=== PATIENT | female | born 1940 | race Caucasian/White ===

== ENCOUNTER 2016-06-30 07:52 | Outpatient (CLI) | payer MEDICARE, OTHER | END 2016-06-30 07:53 | disposition home or self-care (01) | DX: Z79.899 Other long term (current) drug therapy (principal); E78.5 Hyperlipidemia, unspecified; M81.0 Age-related osteoporosis without current pathological fracture; A60.9 Anogenital herpesviral infection, unspecified; D47.1 Chronic myeloproliferative disease; I73.00 Raynaud's syndrome without gangrene ==

== ENCOUNTER 2016-07-15 14:55 | Outpatient (CLI) | payer MEDICARE, OTHER | END 2016-07-15 14:56 | disposition home or self-care (01) | DX: Z12.31 Encounter for screening mammogram for malignant neoplasm of breast (principal) ==

== ENCOUNTER 2017-07-16 08:53 | Emergency (ER) | payer MEDICARE, OTHER ==
[2017-07-16 09:06] VITALS: BP 115/65
[2017-07-16] MEDS ORDERED: ACETAMINOPHEN 325 MG TABLET PO STA (09:51)
--- NOTE | 2017-07-16 09:54 | ED Physician Documentation ---
History of Present Illness - Stated complaint Stated Complaint: L ANKLE INJURY - Chief complaint Chief Complaint: Ext Problem - Additonal information Additional information: hx from pt 77 f got off couch in slippers and rolled her L ankle immed pain and swelling no fall or other injury Review of Systems Musculoskeletal: reports: Pain with weight bearing PD PAST MEDICAL HISTORY - Past Medical History Cardiovascular: High cholesterol Respiratory: None Neuro: None Endocrine/Autoimmune: None GI: Other : None HEENT: None Psych: None Musculoskeletal: Osteoarthritis Derm: None - Past Surgical History Past Surgical History: Yes General: Appendectomy, Bowel surgery, Colonoscopy 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 HEENT: Cataracts, Tonsil/Adenoidectomy - Present Medications Home Medications: Ambulatory Orders Medication Instructions Recorded Confirmed Alendronate Sodium [Fosamax] 70 mg PO Q7D 07/26/12 06/15/17 Hydroxyurea [Hydrea] 500 mg PO BID 07/26/12 06/15/17 Lovastatin [Mevacor] 20 mg PO HS 07/26/12 06/15/17 Aspirin 81 mg PO DAILY 06/06/15 06/15/17 Cholecalciferol [Vitamin D3] 5,000 unit PO DAILY 08/13/15 06/15/17 Ferrous Sulfate 324 mg PO DAILY 08/13/15 06/15/17 Ascorbic Acid 1,000 mg PO DAILY 01/21/16 06/15/17 [place]-3 Acid Ethyl Esters [Lovaza] 1 gm PO DAILY 01/21/16 06/15/17 Acyclovir 400 mg PO TIDX5D PRN 01/22/16 06/15/17 Gemfibrozil 600 mg PO BIDAC 01/22/16 06/15/17 HYDROcod/ACETAM 5/325 [[place] 5/325] 1 - 2 tab PO Q4HR PRN #40 tablet 01/29/16 - Allergies Allergies/Adverse Reactions: Allergies Allergy/AdvReac Type Severity Reaction Status Date / Time codeine AdvReac Nausea Verified 07/16/17 09:06 - Social History Does the pt smoke?: No Smoking Status: Never smoker Does the pt drink ETOH?: No Does the pt have substance abuse?: No - Immunizations Immunizations are current?: Yes - POLST Patient has POLST: No PD ED PE NORMAL - Vitals Vital signs reviewed: Yes - Cardiac Cardiac: RRR - Respiratory Respiratory: No respiratory distress - Extremities Extremities: Other (L ankle with sig lateral edema and early bruising an TTP over mall and surrounding soft tissue, no laxity, achilles intact, minimal 5th MT TTP, MSV intact) - Neuro Neuro: Alert and oriented X 3 Results - Vitals Vitals: Vital Signs - 24 hr 07/16/17 08:58 Temperature 36.5 C Heart Rate 74 Respiratory 16 Rate Blood Pressure 115/65 O2 Saturation 100 Oxygen O2 Source Room air - Rads (name of study) ankle Radiology: See rad report (non displaced distal fibual fx) PD MEDICAL DECISION MAKING - ED course ED course: pt did not feel she could manage crutches safely so will use a walking boot Departure - Departure Disposition: 01 Home, Self Care Clinical Impression: Closed left ankle fracture Qualifiers: Encounter type: initial encounter Qualified Code(s): S82.892A - Other fracture of left lower leg, initial encounter for closed fracture Condition: Good Instructions: ED Fx Ankle Lateral Malleolus Follow-Up: Rhonda Lau MD [Primary Care Provider] - [facility] [Provider Group] Comments: You have a fracture of the fibula bone Since crutches were not a safe option for you, we have opted to protect the bone with a walking boot. Still try and minimize the walking and weight bearing on that leg When resting may remove the boot for improved circulation and to apply ice for the swelling But always wear the boot for standing or walking. Please follow up with orthopedics for ongoing management Tylenol as needed for the pain
--- NOTE | 2017-07-16 10:06 | XRAY Preliminary Report ---
Exam: XR ANKLE 3 VIEW LT IMPRESSION: Acute fracture of the distal tip of the fibula in near anatomic alignment. [facility] SITE ID: [id number]
--- NOTE | 2017-07-16 10:06 | XRAY Report ---
EXAM: LEFT ANKLE RADIOGRAPHY EXAM DATE: 07/16/2017 09:31 AM. CLINICAL HISTORY: Pain swelling left ankle denies falling. COMPARISON: 07/28/2010. TECHNIQUE: 3 views. FINDINGS: Bones: Oblique, minimally displaced fracture through the lateral malleolus without abnormal angulatio n. No other acute fracture. Bones appear demineralized. Joints: No effusion or subluxation. Soft Tissues: Significant lateral and mild anterior soft tissue swelling. Vascular calcifications. IMPRESSION: Acute fracture of the distal tip of the fibula in near anatomic alignment. [facility] Referring Provider Line: [phone] SITE ID: [id number]
== END 2017-07-16 10:52 | disposition home or self-care (01) ==
LOC: ED 08:53
DX: S82.62XA Displaced fracture of lateral malleolus of left fibula, initial encounter for closed fracture (principal); X50.1XXA Overexertion from prolonged static or awkward postures, initial encounter; Y93.89 Activity, other specified; Z79.891 Long term (current) use of opiate analgesic; Z79.82 Long term (current) use of aspirin
CPT/HCPCS: 73610; 99283; A9270

== ENCOUNTER 2017-08-05 13:24 | Outpatient (CLI) | payer MEDICARE, OTHER ==
[2017-08-05 17:45] LABS: BILIRUBIN,URINE NEGATIVE (NEGATIVE); GLUCOSE, URINE (UA) NEGATIVE (NEGATIVE); KETONES,URINE (UA) NEGATIVE (NEGATIVE); LEUKOCYTE ESTERASE, URINE NEGATIVE (NEGATIVE); NITRITE,URINE NEGATIVE (NEGATIVE); OCCULT BLOOD,URINE NEGATIVE (NEGATIVE); PROTEIN,URINE TRACE mg/dL (NEGATIVE); UROBILINOGEN,URINE 0.2 (NORMAL) E.U./dL (NORMAL)
[2017-08-05 17:48] LABS: CLARITY,URINE HAZY (CLEAR)
[2017-08-05 18:06] LABS: BACTERIA,URINE Few /HPF (None Seen); RBC,URINE None Seen /HPF (0-5); SQUAMOUS EPITHELIAL CELL,UR NONE SEEN (<= Few)
[2017-08-05 18:07] LABS: AMORPHOUS SEDIMENT,UR Moderate /LPF; CRYSTALS,URINE 3-5 Calcium Oxalate /LPF
== END 2017-08-05 13:25 | disposition home or self-care (01) ==
LOC: LAB.F 13:24
PROVIDERS: ATTEND Internal Medicine
DX: R35.0 Frequency of micturition (principal); R39.89 Other symptoms and signs involving the genitourinary system
CPT/HCPCS: 81001; 81003; 87086

== ENCOUNTER 2017-08-16 10:58 | Outpatient (CLI) | payer MEDICARE, OTHER ==
--- NOTE | 2017-08-20 10:21 | Mammography Report ---
SCREENING MAMMOGRAM: 08/16/2017 COMPARISON: 07/15/2016, 11/27/2014, 01/19/2013, 10/08/2011, 08/05/2010, and 07/30/2009. TECHNIQUE: Bilateral digital CC, exaggerated CC and MLO projections. FINDINGS: There are scattered fibroglandular densities. There is no dominant mass, architectural distortion, skin thickening, suspicious microcalcifications or interval change. IMPRESSION: NEGATIVE. BIRADS category: 1, negative. Suggest return to routine screening in 12 months. STANDARD QUALIFYING STATEMENTS 1. This examination was reviewed with the aid of Computed-Aided Detection (CAD). 2. A negative or benign imaging report should not delay biopsy if clinically suspicious findings are present. Consider surgical consultation if warranted. More than 5% of cancers are not identified by imaging. 3. Dense breasts may obscure an underlying neoplasm. TD: 08/17/2017 18:19
== END 2017-08-16 10:59 | disposition home or self-care (01) ==
LOC: DI.S 10:58
PROVIDERS: ATTEND Internal Medicine
DX: Z12.31 Encounter for screening mammogram for malignant neoplasm of breast (principal)
CPT/HCPCS: 77067

== ENCOUNTER 2017-09-28 19:57 | Outpatient (CLI) | payer MEDICARE, OTHER ==
--- NOTE | 2017-09-28 22:24 | Ultrasound Report ---
Procedure Date: 09/28/2017 Accession Number: [id number] / [id number] Procedure: US - Duplex Ext Veins Left CPT Code: FULL RESULT: EXAM: LEFT LOWER EXTREMITY VENOUS ULTRASOUND EXAM DATE: 09/28/2017 09:40 PM. CLINICAL HISTORY: LEFT LOWER EXT EDEMA. COMPARISON: None. TECHNIQUE: Real-time sonographic vascular imaging was performed by the hoop rolls operator through the lower extremity utilizing both color-flow and Doppler spectral analysis. Multiple enrollment representative static images were saved for review. FINDINGS: Common Femoral Vein (CFV): Normal. CFV-GSV Junction: Normal. Profunda Femoral Vein (PFV): Normal. Femoral Vein (FV) Prox: Normal. Femoral Vein (FV) Mid: Normal. Femoral Vein (FV) Dist: Normal. Popliteal Vein: Normal. Posterior Tibial Veins: Normal. Peroneal Veins: Suboptimal visualization due to edema. Contralateral Side CFV: Normal. Other: None. IMPRESSION: No evidence for deep venous thrombosis. [facility]
== END 2017-09-28 19:58 | disposition home or self-care (01) ==
LOC: DI 19:57
PROVIDERS: ATTEND Internal Medicine
DX: R60.0 Localized edema (principal); R39.15 Urgency of urination
CPT/HCPCS: 81001; 81003; 87086

== ENCOUNTER 2017-09-28 20:05 | Outpatient (CLI) | payer MEDICARE, OTHER ==
[2017-09-28 20:31] LABS: BILIRUBIN,URINE NEGATIVE (NEGATIVE); GLUCOSE, URINE (UA) NEGATIVE (NEGATIVE); KETONES,URINE (UA) NEGATIVE (NEGATIVE); LEUKOCYTE ESTERASE, URINE SMALL (NEGATIVE); NITRITE,URINE POSITIVE (NEGATIVE); OCCULT BLOOD,URINE TRACE-INTA (NEGATIVE); PROTEIN,URINE TRACE mg/dL (NEGATIVE); UROBILINOGEN,URINE 0.2 (NORMAL) E.U./dL (NORMAL)
[2017-09-28 20:38] LABS: CLARITY,URINE CLOUDY (CLEAR)
[2017-09-28 20:41] LABS: BACTERIA,URINE Moderate /HPF (None Seen); RBC,URINE 0-5 /HPF (0-5); SQUAMOUS EPITHELIAL CELL,UR NONE SEEN (<= Few)
== END 2017-09-28 20:06 | disposition home or self-care (01) ==
LOC: LAB 20:05
PROVIDERS: ATTEND Internal Medicine
DX: R39.15 Urgency of urination (principal)
CPT/HCPCS: 81001; 81003; 87086

== ENCOUNTER 2020-12-25 20:48 | Observation (INO) | payer MEDICARE, OTHER ==
[2020-12-25] MEDS ORDERED: IOVERSOL 320 100 ML VIAL IVP ONE ×2 (21:58→23:56)
[2020-12-25 22:20] LABS: BASOPHILS # (AUTO) 0.4 10^3/uL (0.0-0.1); EOSINOPHILS # (AUTO) 0.6 10^3/uL (0.0-0.7); EOSINOPHILS % (AUTO) 2.9 %; HCT - HEMATOCRIT 39.6 % (37.0-47.0); HGB - HEMOGLOBIN 12.8 g/dL (12.0-16.0); LYMPHOCYTES # (AUTO) 1.9 10^3/uL (1.5-3.5); MEAN CORPUSCULAR HEMOGLOBIN 31.1 pg (27.0-31.0); MEAN CORPUSCULAR HGB CONC 32.3 g/dL (32.0-36.0); MEAN CORPUSCULAR VOLUME 96.4 fL (81.0-99.0); MEAN PLATELET VOLUME 9.8 fL (7.9-10.8); MONOCYTES # (AUTO) 1.2 10^3/uL (0.0-1.0); MONOCYTES % (AUTO) 6.6 %; NEUTROPHILS # (AUTO) 14.6 10^3/uL (1.5-6.6); NEUTROPHILS % (AUTO) 77.6 %; RED BLOOD COUNT 4.11 10^6/uL (4.20-5.40); RED CELL DISTRIBUTION WIDTH 15.3 % (12.0-15.0); WHITE BLOOD COUNT 18.8 x10^3/uL (4.8-10.8)
[2020-12-25 22:26] LABS: PLT - PLATELET COUNT 1055 10^3/uL (130-450)
[2020-12-25 22:30] LABS: ALBUMIN 4.9 g/dL (3.2-5.5); CALCIUM 9.8 mg/dL (8.5-10.3); CREATININE 0.7 mg/dL (0.4-1.0); POTASSIUM 4.7 mmol/L (3.5-5.0)
[2020-12-25 23:20] LABS: ALBUMIN/GLOBULIN RATIO 2.5 (1.0-2.2); BILIRUBIN,TOTAL 0.3 mg/dL (0.2-1.0); TOTAL PROTEIN 6.9 g/dL (6.7-8.2)
--- NOTE | 2020-12-26 00:10 | CT Report ---
PROCEDURE: ANGIO HEAD W/WO INDICATIONS: dysarthria @1854, hx thrombocytosis CONTRAST: IV CONTRAST: Optiray 320 ml: 80 PO CONTRAST: *NO PO CONTRAST TECHNIQUE: Precontrast 4.5 mm thick angled axial sections acquired from the foramen magnum to the vertex. Afte r the administration of intravenous contrast, 1 mm thick sections acquired through the [place] is. Postcontrast 4.5 mm thick sections then re-acquired from the foramen magnum to the vertex. 3-di mensional zzlswyu-cqtrjwzwn-dzrmnezhzv (MIP) and/or volume rendering reformats were acquired of the c entral intracranial vasculature. For radiation dose reduction, the following was used: automated ex posure control, adjustment of mA and/or kV according to patient size. COMPARISON: None. FINDINGS: Image quality: Excellent. Anterior circulation: Mild atherosclerotic calcifications are seen in the intracranial portions of t he internal carotid arteries bilaterally without hemodynamically significant stenosis. The flow withi n the paired anterior cerebral arteries is normal and symmetric. The flow within the middle cerebral arteries is normal and symmetric. The anterior communicating artery is seen. No aneurysms are seen . Posterior circulation: Mild atherosclerotic calcifications are seen in the intracranial portions of the vertebral arteries bilaterally, which does not result in significant stenosis on the left and res ults in less than 30% stenosis of the intracranial right vertebral artery. The basilar artery is hyde nt. There is a type origin of the left posterior cerebral artery with a hypoplastic P1 segment, and anatomical variant. Flow within the posterior cerebral arteries is otherwise normal and symmetri c. No aneurysms are seen. CSF spaces: Ventricles are symmetric in size and shape. Basal cisterns are patent. No extra-axial fluid collections. Brain: No midline shift. No acute intracranial hemorrhage or mass effect. There is prominence of the ventricles and sulci, consistent with cerebral and cerebellar volume loss. Hypodensities in the subc ortical and periventricular white matter most commonly seen in the setting of chronic microvascular i schemic changes. Intracranial atherosclerotic calcifications are present. Skull and face: Calvarium and facial bones appear intact, without suspicious lesions. Sinuses: Visualized sinuses and mastoids are clear. IMPRESSION: 1.No acute intracranial abnormality. 2.Mild intracranial atherosclerotic calcifications without hemodynamically significant stenosis. No a cute intracranial arterial occlusion. 3.Moderate microvascular ischemic changes and age-related diffuse cerebral volume loss. Reviewed by: Cristian Vázquez MD on 12/26/2020 12:09 AM PDT Approved by: Cristian Vázquez MD on 12/26/2020 12:09 AM PDT Station ID: [id number]
[2020-12-26] MEDS ORDERED: MORPHINE 2 MG/ML CARPUJECT IVP STA (00:18)
[2020-12-26 00:25] LABS: BILIRUBIN,URINE NEGATIVE (NEGATIVE); GLUCOSE, URINE (UA) NEGATIVE (NEGATIVE); KETONES,URINE (UA) NEGATIVE (NEGATIVE); LEUKOCYTE ESTERASE, URINE NEGATIVE (NEGATIVE); NITRITE,URINE NEGATIVE (NEGATIVE); OCCULT BLOOD,URINE NEGATIVE (NEGATIVE); PH,URINE 6.5 PH (5.0-7.5); PROTEIN,URINE NEGATIVE (NEGATIVE); UROBILINOGEN,URINE 0.2 (NORMAL) E.U./dL (NORMAL)
--- NOTE | 2020-12-26 00:25 | CT Report ---
PROCEDURE: ANGIO NECK W INDICATIONS: dysarthria @1854 now resolved. hx thrombocytosis CONTRAST: IV CONTRAST: Optiray 320 ml: 80 PO CONTRAST: *NO PO CONTRAST TECHNIQUE: After the administration of intravenous contrast, 1.5 mm axial sections acquired from the aortic arch to the [place]. Coronal 3-D maximum intensity projection (MIP) and/or volume rendering ref ormats were then performed. For radiation dose reduction, the following was used: automated exposur e control, adjustment of mA and/or kV according to patient size. COMPARISON: None. FINDINGS: Image quality: Excellent. Carotid system: The great vessels demonstrate a conventional anatomy as they arise from the aortic a rch. Mild aortic atherosclerotic calcifications. The origins of the common carotid arteries appear p atent. The common carotid arteries demonstrate normal calibers and courses. Densely calcified and no ncalcified atherosclerotic plaque is seen in the carotid bifurcations bilaterally. On the right, this results in mild to approximately 30% stenosis of the proximal internal carotid artery. On the left, the noncalcified plaque appears mildly irregular and results in approximately 55% stenosis of the pro ximal internal carotid artery. Intracranial vascular calcifications are seen in the internal carotid arteries bilaterally without hemodynamically significant stenosis. Posterior circulation: The origins of the vertebral arteries appear patent. The more superior instr ument portions of the vertebral arteries demonstrate normal course and caliber. Vascular calcificatio ns are seen in the intracranial portions of the vertebral arteries, resulting in less than 50% stenos is of the right vertebral artery without significant left vertebral artery stenosis. They join to for m a normal appearing basilar artery. Soft tissues: Visualized neck soft tissues demonstrate no suspicious abnormalities. A few small hyp odense nodules are seen in the thyroid, the largest measures up to 7 mm in the left thyroid lobe. No imaging follow-up is recommended based on ACR white paper guidelines. Bones: No suspicious bony lesions. Visualized cervical spine appears normally aligned. Multilevel degenerative changes are seen in the cervical spine. IMPRESSION: 1.Mildly irregular calcified and noncalcified atherosclerotic plaque at the left carotid bifurcation results in 50-60% stenosis of the proximal left internal carotid artery. 2.Calcified atherosclerotic plaque at the right carotid bifurcation results in mild, approximately 30 % stenosis. 3.Calcified atherosclerotic plaque at the intracranial right vertebral artery results in less than 50 % stenosis. 4.No acute arterial occlusion. The estimate of stenosis included in the report of the imaging study was calculated using the NASCET method Reviewed by: Cristian Vázquez MD on 12/26/2020 12:24 AM PDT Approved by: Cristian Vázquez MD on 12/26/2020 12:24 AM PDT Station ID: [id number]
[2020-12-26 00:26] LABS: CLARITY,URINE CLEAR (CLEAR)
[2020-12-26] MEDS ORDERED: ASPIRIN 325 MG TABLET PO STA (01:07)
[2020-12-26] MEDS ORDERED: SODIUM CHLORIDE FLUSH 0.9% 10 ML SYRINGE IVP PRN (01:10)
[2020-12-26] MEDS ORDERED: ONDANSETRON ODT 4 MG TABLET TL PRN (01:10)
[2020-12-26] MEDS ORDERED: ACETAMINOPHEN 325 MG TABLET PO PRN (01:10)
--- NOTE | 2020-12-26 01:11 | ED Physician Documentation ---
History of Present Illness - Stated complaint Stated Complaint: SLURRED SPEACH,SORE FEET - Chief complaint Chief Complaint: Ext Problem - Additonal information Additional information: 80yF with pmh myeloproliferative disorder with thrombocytosis, hld, OA, p/w brief episode of slurred speech around 1954 this past evening. patient called her friend and the friend noted slurred speech and called 911. patient reports it only lasted a couple minutes and had resolved upon ems arrival. no history drug or alcohol use. AOX3 on arrival. patient appears unsure of her medications or whether she takes medications. 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 HEENT: Cataracts, Tonsil/Adenoidectomy - Present Medications Home Medications: Ambulatory Orders Medication Instructions Recorded Confirmed Alendronate Sodium [Fosamax] 70 mg PO Q7D 07/26/12 09/26/19 Hydroxyurea [Hydrea] 500 mg PO BID 07/26/12 09/26/19 Lovastatin [Mevacor] 20 mg PO HS 07/26/12 09/26/19 Aspirin 81 mg PO DAILY 06/06/15 09/26/19 Cholecalciferol [Vitamin D3] 5,000 unit PO DAILY 08/13/15 09/26/19 Ferrous Sulfate 324 mg PO DAILY 08/13/15 09/26/19 Ascorbic Acid 1,000 mg PO DAILY 01/21/16 09/26/19 [place]-3 Acid Ethyl Esters [Lovaza] 1 gm PO DAILY 01/21/16 09/26/19 Acyclovir 400 mg PO TIDX5D PRN 01/22/16 09/26/19 gemfibroziL [Gemfibrozil] 600 mg PO BIDAC 01/22/16 09/26/19 HYDROcod/ACETAM 5/325 [[place] 5/325] 1 - 2 tab PO Q4HR PRN #40 tablet 01/29/16 09/26/19 oxyCODONE [Roxicodone] 5 mg PO Q4-6H #10 tablet 07/16/17 09/26/19 Hydroxyurea 500 mg PO DAILY 09/20/18 09/26/19 - Allergies Allergies/Adverse Reactions: Allergies Allergy/AdvReac Type Severity Reaction Status Date / Time codeine AdvReac Nausea Verified 12/25/20 21:24 - Social History Does the pt smoke?: No Smoking Status: Never smoker Does the pt drink ETOH?: No Does the pt have substance abuse?: No - Immunizations Immunizations are current?: Yes - POLST Patient has POLST: No PD ED PE NORMAL - Vitals Vital signs reviewed: Yes - General General: Alert and oriented X 3, No acute distress, Well developed/nourished - HEENT HEENT: Atraumatic, PERRL, EOMI - Neck Neck: Supple, no meningeal sign - Cardiac Cardiac: RRR - Respiratory Respiratory: No respiratory distress, Clear bilaterally - Abdomen Abdomen: Non tender, Non distended - Female Female : Deferred - Rectal Rectal: Deferred - Back Back: No CVA TTP - Derm Derm: Normal color - Extremities Extremities: No deformity - Neuro Neuro: Alert and oriented X 3, 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, No motor deficit, No sensory deficit, Normal speech, Other (NIHSS 0) - Psych Psych: Normal mood, Normal affect Results - Vitals Vitals: Vital Signs - 24 hr 12/25/20 12/25/20 12/25/20 21:00 21:28 22:18 Temperature 36.6 C Heart Rate 91 89 94 Respiratory 18 16 18 Rate Blood Pressure 128/66 148/64 H 126/63 O2 Saturation 100 98 100 12/25/20 12/26/20 12/26/20 22:38 00:00 00:20 Temperature 36.7 C Heart Rate 93 93 98 Respiratory 21 17 18 Rate Blood Pressure 153/82 H 137/73 H 137/73 H O2 Saturation 100 99 99 12/26/20 01:07 Temperature Heart Rate 96 Respiratory 17 Rate Blood Pressure 133/88 H O2 Saturation 97 Oxygen O2 Source Room air - Labs Labs: Laboratory Tests 12/25/20 12/25/20 12/25/20 21:18 22:10 22:10 WBC 18.8 H RBC 4.11 L Hgb 12.8 Hct 39.6 MCV 96.4 MCH 31.1 H MCHC 32.3 RDW 15.3 H Plt Count 1055 H* MPV 9.8 Neut # (Auto) 14.6 H Lymph # (Auto) 1.9 [place] # (Auto) 1.2 H Eos # (Auto) 0.6 Baso # (Auto) 0.4 H Absolute Nucleated RBC 0.00 Nucleated RBC % 0.0 Sodium 139 Potassium 4.7 Chloride 104 Carbon Dioxide 25 Anion Gap 10.0 BUN 21 H Creatinine 0.7 Estimated GFR (MDRD) 81 L Glucose 107 H POC Whole Bld Glucose 97 Calcium 9.8 Total Bilirubin 0.3 AST 23 ALT 21 Alkaline Phosphatase 78 Total Protein 6.9 Albumin 4.9 Globulin 2.0 L Albumin/Globulin Ratio 2.5 H Lipase 34 Urine Color Urine Clarity Urine pH Ur Specific [place] Urine Protein Urine Glucose (UA) Urine Ketones Urine Occult Blood Urine Nitrite Urine Bilirubin Urine Urobilinogen Ur Leukocyte Esterase Ur Microscopic Review Urine Culture Comments 12/26/20 00:17 WBC RBC Hgb Hct MCV MCH MCHC RDW Plt Count MPV Neut # (Auto) Lymph # (Auto) [place] # (Auto) Eos # (Auto) Baso # (Auto) Absolute Nucleated RBC Nucleated RBC % Sodium Potassium Chloride Carbon Dioxide Anion Gap BUN Creatinine Estimated GFR (MDRD) Glucose POC Whole Bld Glucose Calcium Total Bilirubin AST ALT Alkaline Phosphatase Total Protein Albumin Globulin Albumin/Globulin Ratio Lipase Urine Color YELLOW Urine Clarity CLEAR Urine pH 6.5 Ur Specific [place] 1.015 Urine Protein NEGATIVE Urine Glucose (UA) NEGATIVE Urine Ketones NEGATIVE Urine Occult Blood NEGATIVE Urine Nitrite NEGATIVE Urine Bilirubin NEGATIVE Urine Urobilinogen 0.2 (NORMAL) Ur Leukocyte Esterase NEGATIVE Ur Microscopic Review NOT INDICATED Urine Culture Comments NOT INDICATED PD MEDICAL DECISION MAKING - ED course ED course: 80yF presents with transient neurologic symptoms concerning for possible TIA. mild to moderate stenosis on CTA neck. CT and CTA head noncontributory. d/w Dr. Rodriguez for observation for TIA workup. Departure - Departure Disposition: ED Place in Observation Clinical Impression: TIA (transient ischemic attack), Slurring of speech Condition: Stable Discharge Date/Time: 12/26/20 01:42
--- NOTE | 2020-12-26 01:16 | HISTORY & PHYSICAL EXAMINATION ---
Chief Complaint - Chief Complaint Chief Complaint: Slurred speech History of Present Illness - Admitted From Admitted From:: Home - History Obtained From Records Reviewed: Yes History obtained from: Patient, ER Physician, EMR - History of Present Illness HPI Comment/Other: This is a 80-year-old female with a past medical history significant for a my eloproliferative disorder with thrombocytosis, iron deficiency anemia who presents yesterday evening complaining of slurred speech. She states she is on the phone talking to her friend when she noticed that her speech was quite slurred and her friend did as well. She states this only lasted for a few minutes before resolving. She is not believe that she had any other deficits. She currently feels that her speech is back to baseline and she currently has no weakness in her upper or lower extremities. Her only complaint at this time is bilateral feet pain over the plantar surface which she states has been present for nearly a week now. She denies any fevers, chills, chest pain, dyspnea. She does take hydroxyurea for the myeloproliferative disorder. Prior records reveal that she was prescribed aspirin but she does not believe that she is taking any aspirin on a regular basis. She denies any evidence of bleeding but does report that she tends to bleed easily. In the emergency department, she underwent a CTA of the head and neck an approximate 50-60% stenosis of the proximal left internal carotid artery but no evidence of acute occlusion. There was no significant stenosis evident on CTA head. Labs revealed a white count of 18.8 and a platelet count of 1055. She was given aspirin in the emergency department. Given the above findings, medicine was consulted for admission. I did discuss goals of care with the patient and she would like to be a full code. 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 She reports no other significant family history. Living arrangement: At home Living Situation: Alone Social History Notes: She states she lives at home alone. She is a non-smoker and does not drink alcohol. - POLST Patient has POLST: No Meds/Allgy - Home Medications Home Medications: Ambulatory Orders Medication Instructions Recorded Confirmed Alendronate Sodium [Fosamax] 70 mg PO Q7D 07/26/12 09/26/19 Hydroxyurea [Hydrea] 500 mg PO BID 07/26/12 09/26/19 Lovastatin [Mevacor] 20 mg PO HS 07/26/12 09/26/19 Aspirin 81 mg PO DAILY 06/06/15 09/26/19 Cholecalciferol [Vitamin D3] 5,000 unit PO DAILY 08/13/15 09/26/19 Ferrous Sulfate 324 mg PO DAILY 08/13/15 09/26/19 Ascorbic Acid 1,000 mg PO DAILY 01/21/16 09/26/19 [place]-3 Acid Ethyl Esters [Lovaza] 1 gm PO DAILY 01/21/16 09/26/19 Acyclovir 400 mg PO [id number] PRN 01/22/16 09/26/19 gemfibroziL [Gemfibrozil] 600 mg PO BIDAC 01/22/16 09/26/19 HYDROcod/ACETAM 5/325 [[place] 5/325] 1 - 2 tab PO Q4HR PRN #40 tablet 01/29/16 09/26/19 oxyCODONE [Roxicodone] 5 mg PO Q4-6H #10 tablet 07/16/17 09/26/19 Hydroxyurea 500 mg PO DAILY 09/20/18 09/26/19 - Allergies Allergies/Adverse Reactions: Allergies Allergy/AdvReac Type Severity Reaction Status Date / Time codeine AdvReac Nausea Verified 12/25/20 21:24 Review of Systems - Constitutional Constitutional: denies: Fatigue, Fever, Chills - Ears, Nose & Throat Ears, Nose & Throat: denies: Nasal discharge, Nasal congestion - Cardiovascular Cariovascular: denies: Chest pain, Edema, Exertional dyspnea, Decr. exercise tolerance - Respiratory Respiratory: denies: Cough, SOB at rest, SOB with exertion - Gastrointestinal Gastrointestinal: reports: Nausea. denies: Abdominal pain, Rectal bleeding, Bloody stools, Vomiting - Genitourinary Genitourinary: denies: Dysuria, Frequency, Urgency, Hematuria - Musculoskeletal Musculoskeletal: denies: Muscle pain, Muscle weakness - Integumentary Integumentary: denies: Rash - Neurological Neurological: reports: Slurred speech. denies: General weakness, Focal weakness, Numbness - Hematologic/Lymphatic Hematologic/Lymphatic: reports: Anemia, Bruising, Bleeding tendencies - All Other Systems All Other Systems: reports: Reviewed and negative Prior Level of Functionality: She is independent with her ADLs. Exam - Vital Signs Reviewed Vital Signs: Yes Vital Signs: Vital Signs x48h Temp Pulse Resp BP Pulse Ox 12/26/20 01:07 96 17 133/88 H 97 12/26/20 00:20 98 18 137/73 H 99 12/26/20 00:00 36.7 C 93 17 137/73 H 99 12/25/20 22:38 93 21 153/82 H 100 12/25/20 22:18 94 18 126/63 100 12/25/20 21:28 89 16 148/64 H 98 12/25/20 21:00 36.6 C 91 18 128/66 100 - Physical Exam General Appearance: positive: No acute distress, Alert Eyes Bilateral: positive: Conjunctivae nml ENT: positive: ENT inspection nml Neck: positive: Nml inspection Respiratory: positive: No respiratory distress. negative: Wheezes, Rales Cardiovascular: positive: Regular rate & rhythm, No murmur. negative: Tachycardia Peripheral Pulses: positive: 2+ (Dorsalis pedis pulses.) Abdomen: positive: Non-tender, No distention. negative: Tenderness Skin: positive: Warm, Dry Extremities: positive: No pedal edema Neurologic/Psychiatric: positive: CN's nml (2-12), Motor nml, Sensation nml. negative: Disoriented to person, Disoriented to place, Disoriented to time, S ensory loss, Facial droop, Slurred/abnml speech Conclusion/Plan - Problem List (1) TIA (transient ischemic attack) Conclusion/Plan: She presents with slurred speech but no focal deficits. Imaging revealed a 50 to 60% stenosis of the left proximal internal carotid artery. She will be placed in observation and continued on aspirin and Plavix. We will start her on Lipitor 40 mg in the evening. We will check an A1c and lipid panel. Obtain MRI as well as echocardiogram. Monitor on telemetry. Will ultimately likely discuss with hematology/neurology regarding long-term antiplatelet given her myeloproliferative disorder with thrombocytosis. (2) Myeloproliferative disorder Conclusion/Plan: She is a known history of myeloproliferative disorder with thrombocytosis. She is on hydroxyurea. It appears she has not seen hematology since November 2019 and the patient is unable to tell me why. She will most definitely need outpatient follow-up on discharge given her persistently elevated platelet count and now potential concern for TIA. (3) Thrombocytosis Conclusion/Plan: This is secondary to a myeloproliferative disorder. Platelet count is over 1000. She is supposed to be on aspirin but she does not believe that she is steven ing this. We will continue her 81 mg of aspirin and add Plavix given the TIA. - Lab Results Lab results reviewed: Yes Nehemiah Bones: 12/26/20 02:08 12/26/20 02:08 - Diagnostic Imaging Results Diagnostic Imaging Results: positive: Final report reviewed Core Measures - Anticipated LOS I expect patient to be DC'd or transferred within 96 hours.: Yes - Issues Hospital Issues and Management Plan: 80-year-old female with a history of mild peripheral disorder with thrombocytosis presents with slurred speech that has resolved. Concern is for TIA and so we will place her in observation for further work-up including MRI and echo. - DVT/VTE - Prophylaxis VTE/DVT Device ordered at admit?: Yes VTE/DVT Prophylaxis med ordered at admit?: Yes
[2020-12-26 02:10] LABS: B. PARAPERTUSSIS- RESP PCR PAN NOT DETECTED; B. PERTUSSIS- RESP PCR PANEL NOT DETECTED; C. PNEUMONIAE- RESP PCR PANEL NOT DETECTED; CORONAVIRUS 229E-RESP PCR NOT DETECTED; CORONAVIRUS HKU1-RESP PCR NOT DETECTED; CORONAVIRUS NL63-RESP PCR NOT DETECTED; CORONAVIRUS OC43-RESP PCR NOT DETECTED; HUMAN METAPNEUMOVIRUS NOT DETECTED; INFLUENZA A- RESP PCR PANEL NOT DETECTED; INFLUENZA B - RESP PCR PANEL NOT DETECTED; PARAINFLUENZA VIRUS 1 NOT DETECTED; PARAINFLUENZA VIRUS 2 NOT DETECTED; PARAINFLUENZA VIRUS 3 NOT DETECTED; PARAINFLUENZA VIRUS 4 NOT DETECTED; RHINOVIRUS/ENTEROVIRUS NOT DETECTED; RSV- RESP PCR PANEL NOT DETECTED; SARS-CoV-2 -RESP PCR PANEL NOT DETECTED
[2020-12-26 02:11] LABS: M. PNEUMONIAE- RESP PCR PANEL NOT DETECTED
[2020-12-26 02:17] LABS: BASOPHILS # (AUTO) 0.4 10^3/uL (0.0-0.1); EOSINOPHILS # (AUTO) 0.6 10^3/uL (0.0-0.7); HCT - HEMATOCRIT 41.5 % (37.0-47.0); LYMPHOCYTES # (AUTO) 1.9 10^3/uL (1.5-3.5); LYMPHOCYTES % (AUTO) 10.1 %; MEAN CORPUSCULAR HEMOGLOBIN 30.3 pg (27.0-31.0); MEAN CORPUSCULAR HGB CONC 31.3 g/dL (32.0-36.0); MEAN CORPUSCULAR VOLUME 96.7 fL (81.0-99.0); MEAN PLATELET VOLUME 9.8 fL (7.9-10.8); MONOCYTES # (AUTO) 1.1 10^3/uL (0.0-1.0); MONOCYTES % (AUTO) 6.1 %; NEUTROPHILS # (AUTO) 14.7 10^3/uL (1.5-6.6); NEUTROPHILS % (AUTO) 78.2 %; RED BLOOD COUNT 4.29 10^6/uL (4.20-5.40); RED CELL DISTRIBUTION WIDTH 15.1 % (12.0-15.0); WHITE BLOOD COUNT 18.8 x10^3/uL (4.8-10.8)
[2020-12-26 02:23] LABS: PLT - PLATELET COUNT 949 10^3/uL (130-450)
[2020-12-26 02:40] LABS: BUN - BLOOD UREA NITROGEN 16 mg/dL (6-20); CALCIUM 9.2 mg/dL (8.5-10.3); CARBON DIOXIDE - CO2 24 mmol/L (21-32); CHLORIDE 101 mmol/L (101-111); CHOL/HDL RATIO 6.5 (<4.4); CHOLESTEROL 209 mg/dL; CREATININE 0.7 mg/dL (0.4-1.0); GFR - MDRD 81 (>89); GLUCOSE 91 mg/dL (70-100); HDL CHOLESTEROL 32 mg/dL; LDL CHOLESTEROL,CALCULATED 135 mg/dL; LDL/HDL RATIO 4.2 (<4.4); POTASSIUM 3.9 mmol/L (3.5-5.0); SODIUM 136 mmol/L (135-145); TRIGLYCERIDES 210 mg/dL; VLDL CHOLESTEROL 42 mg/dL
[2020-12-26] MEDS ORDERED: ASPIRIN CHEW 81 MG TABLET PO SCH (09:00)
[2020-12-26] MEDS ORDERED: ENOXAPARIN 40 MG/0.4 ML SYRINGE SUBQ SCH (09:00)
[2020-12-26] MEDS ORDERED: SODIUM CHLORIDE FLUSH 0.9% 10 ML SYRINGE IVP SCH (09:00)
[2020-12-26] MEDS ORDERED: CLOPIDOGREL 75 MG TABLET PO SCH (09:00)
[2020-12-26 10:32] LABS: ESTIMATED AVERAGE GLUCOSE 114 mg/dL (70-100); HEMOGLOBIN A1c% 5.6 % (4.27-6.07)
--- NOTE | 2020-12-26 11:16 | PHARMACY PROGRESS NOTE ---
- Best Possible Medication History Admit Date and Time: 12/26/20 0110 Processed by: Pharmacy Medication History completed: Yes Patient Interview: Completed Secondary Source(s): Insurance records (Patient reports she only takes 1 pill a day, was not sure what. Olga Choi in [place] (patient's pharmacy) reports she has not filled anything since 07/15/20. Re-interviewed patient, she says she takes hydroxyurea everyday ) As the person ultimately responsible for medication therapy, providers are able to order a medication from an existing home medication list in [facility] via the "Reconcile Routine" prior to Confirmation of that medication by supportability engineer. Such practice is discouraged except when the physician, in their clinical judgment, deems that a medical need exists for a medication without regard to previous use.
--- NOTE | 2020-12-26 13:29 | MRI Report ---
PROCEDURE: Brain W/O INDICATIONS: Neuro deficit resolved. TECHNIQUE: Noncontrast axial T1 spin echo, axial T2 fast spin echo, sagittal and axial FLAIR, coronal T2 fast sp in echo, axial gradient echo, axial diffusion and ADC through the brain. COMPARISON: CTA head and neck 12/25/2020. FINDINGS: Image quality: Excellent. The ventricular system and cortical sulci demonstrate atrophy, consistent for patient's stated age. There are areas of hyperintense T2/FLAIR signal in the periventricular and subcortical white matter. There is no acute intra or extra-axial fluid collection. No acute hemorrhage, mass lesion or midlin e shift. Brainstem is unremarkable. There are no areas of restricted diffusion. Globes are symmetr ical. Sinuses are aerated. Osseous structures are intact. IMPRESSION: 1. No acute intracranial process. 2. Moderate atrophy and chronic microvascular ischemic changes. Reviewed by: Tayler Patel MD on 12/26/2020 1:27 PM PDT Approved by: Tayler Patel MD on 12/26/2020 1:27 PM PDT Station ID: [id number]
[2020-12-26] MEDS ORDERED: HYDROXYUREA 500 MG CAPSULE PO SCH (14:00)
--- NOTE | 2020-12-26 14:20 | Discharge Plan ---
Discharge Plan Problem Reviewed?: Yes Disposition: Home, Self Care Condition: Stable Prescriptions: Atorvastatin [Lipitor] 40 mg PO QPM #30 tablet Aspirin Chewable [[place] Aspirin] 81 mg PO DAILY #30 tablet Diet: Regular Activity Restrictions: Activity as Tolerated Shower Restrictions: No (fall precaution) Instruction Topics: TIA, Platelets Health Concerns: TIA, chronic myeloproliferative disease, thrombocytosis Plan of Treatment: Your MRI reveals you have no stroke. Your symptoms are resolved. PT has evalu ation and treatment for you, you are prescribed [place] wheel walker. You may followup with your PCP to have out-patient PT for you. You have chronic myeloproliferative disease. Now your Platelets and white blood cell are elevated. We called your oncologist Dr. Walls, she hope to see you on next week. please make an appointment to see her. Dr. Walls Emphasized you should take hydroxyurea 500mg twice daily and Baby Aspirin 81mg daily. Now you have elevated cholesterol level, you are prescribed Lipitor 40mg daily as well. It is very important for you to make medical compliance. Care Goals: Stabilization and improvement of your medical conditions Assessment: Discussed the care plan with you, your son, your caregiver. Answered your questions. You understood. Additional Instructions or Follow Up instructions: You may follow-up with your PCP in 1 week, check your CBC blood work, and followup with Dr. Katherine Walls on next week. Should your symptoms return, worsen, or any bleeding happens, you may present ER or call 911 for help. Follow-Up Care: Outpatient Rehab - PT No Smoking: If you smoke, Please STOP! Call for help. Follow-up with: Rhonda Lau MD [Primary Care Provider] -
--- NOTE | 2020-12-26 14:42 | DISCHARGE SUMMARY ---
Discharge Summary Admit Date: 12/26/20 Discharge Date: 12/26/20 Discharging Provider: Venkatesh Wlals Primary Care Provider: Rhonda Jameson Code Status: Attempt Resuscitation Condition at Discharge: Stable Discharge Disposition: 01 Home, Self Care Discharge Facility Name: home - DIAGNOSES Discharge Diagnoses with Status of Each Condition: (1) TIA (transient ischemic attack) pt's slurred speech is resolved. pt has no other neurological deficits. pt evaluated and treated for pt. pt is prescribed [place] wheel walker and out-pt PT. Pt's MRI of brain reveal no acute Intracranial process. pt had elevated Cholesterol level, pt's home statin medication dosage is increased. pt is prescribed baby aspirin. (2) Myeloproliferative disorder pt has elevated WBC and Platelet. I Called Dr. Katherine Walls, pt's oncologist. Dr. Walls believe pt can d/c to home, followup with her on next week, and make sure pt take hydroxyurea and baby aspirin. pt has no bleeding, her HGB is at normal arrange. review pt's hx. pt had even higher platelet at 11/2019, at that time pt saw her oncologist Dr. Walls. pt was prescribed Hydroxyurea bid and Aspirin 81mg daily. But pt report she did not take Aspirin at home. (3) Thrombocytosis This is secondary to a myeloproliferative disorder. Platelet count is slightly reduced on today. pt has no acute bleeding. her HGB is at normal arrange. I Called Dr. Katherine Walls, pt's oncologist. Dr. Walls believe pt can d/c to home, followup with her on next week, and make sure pt take hydroxyurea and baby aspirin. (4)Medical non-compliant pt was prescribed Hydroxyurea bid and baby Aspirin daily by Dr. Walls. But pt report she did not take Aspirin at home which could lead to pt's TIA. Emphasized to patient the importance of making medical compliant. I also called pt's son Jeri, nurse Mtz gave me his phone, updated pt's medical conditions and discussed care plan with him. I also consulted with long term care social worker to followup with pt help her make appointment to see Dr. Katherine Walls. - HPI History of Present Illness: HPI Comment/Other: This is a 80-year-old female with a past medical history significant for a myeloproliferative disorder with thrombocytosis, iron deficiency anemia who presents yesterday evening complaining of slurred speech. She states she is on the phone talking to her friend when she noticed that her speech was quite s lurred and her friend did as well. She states this only lasted for a few minutes before resolving. She is not believe that she had any other deficits. She currently feels that her speech is back to baseline and she currently has no weakness in her upper or lower extremities. Her only complaint at this time is bilateral feet pain over the plantar surface which she states has been present for nearly a week now. She denies any fevers, chills, chest pain, dyspnea. She does take hydroxyurea for the myeloproliferative disorder. Prior records reveal that she was prescribed aspirin but she does not believe that she is taking any aspirin on a regular basis. She denies any evidence of bleeding but does report that she tends to bleed easily. In the emergency department, she underwent a CTA of the head and neck an approximate 50-60% stenosis of the proximal left internal carotid artery but no evidence of acute occlusion. There was no significant stenosis evident on CTA head. Labs revealed a white count of 18.8 and a platelet count of 1055. She was given aspirin in the emergency department. Given the above findings, medicine was consulted for admission. I did discuss goals of care with the patient and she would like to be a full code. - ALLERGIES Allergies/Adverse Reactions: Allergies Allergy/AdvReac Type Severity Reaction Status Date / Time codeine AdvReac Nausea Verified 12/25/20 21:24 - MEDICATIONS Home Medications: Ambulatory Orders Medication Instructions Recorded Confirmed Hydroxyurea [Hydrea] 500 mg PO BID 07/26/12 12/26/20 Aspirin Chewable [[place] 81 mg PO DAILY #30 tablet 12/26/20 Aspirin] Atorvastatin [Lipitor] 40 mg PO QPM #30 tablet 12/26/20 - PHYSICAL EXAM AT DISCHARGE General Appearance: positive: No acute distress, Alert. negative: Lethargic Eyes Bilateral: positive: Normal inspection, PERRL, No lid inflammation ENT: positive: ENT inspection nml, No signs of dehydration. negative: Purulent nasal drainage Neck: positive: Nml inspection, Trachea midline. negative: Thyromegaly, Tracheal deviation Respiratory: positive: Chest non-tender, No respiratory distress, Breath sounds nml. negative: Wheezes Cardiovascular: positive: Regular rate & rhythm, No murmur. negative: Tachycardia, Bradycardia, Systolic murmur, Diastolic murmur Peripheral Pulses: positive: 2+ Abdomen: positive: Non-tender, Nml bowel sounds, No distention. negative: Tenderness Back: positive: Nml inspection Skin: positive: Color nml, Warm, Dry. negative: Cyanosis Extremities: positive: Non-tender, Full ROM, Nml appearance. negative: Calf tenderness Neurologic/Psychiatric: positive: Oriented x3, Motor nml, Sensation nml. negative: Weakness, Sensory loss, Facial droop, Slurred/abnml speech, Depressed mood/affect - LABS Result Diagrams: 12/26/20 02:08 12/26/20 02:08 - FOLLOW UP Follow Up: Your MRI reveals you have no stroke. Your symptoms are resolved. PT has evaluation and treatment for you, you are prescribed [place] wheel walker. You may followup with your PCP to have out-patient PT for you. You have chronic myeloproliferative disease. Now your Platelets and white blood cell are elevated. We called your oncologist Dr. Walls, she hope to see you on next week. please make an appointment to see her. Dr. Walls Emphasized you should take hydroxyurea 500mg twice daily and Baby Aspirin 81mg daily. Now you have elevated cholesterol level, you are prescribed Lipitor 40mg daily as well. It is very important for you to make medical compliance. You may follow-up with your PCP in 1 week, check your CBC blood work, and followup with Dr. Katherine Walls on next week. Should your symptoms return, worsen, or any bleeding happens, you may present ER or call 911 for help. - TIME SPENT Time Spent in Discharge (Minutes): 30
[2020-12-26 15:56] VITALS: BP 130/64
[2020-12-26] MEDS ORDERED: ATORVASTATIN 40 MG TABLET PO SCH (21:00)
== END 2020-12-26 16:02 | disposition home or self-care (01) ==
LOC: ED 20:48 → MS3 12-26 01:10
PROVIDERS: ADMIT Internal Medicine; ATTEND Nurse Practitioner Gerontology
DX: G45.9 Transient cerebral ischemic attack, unspecified (principal); D47.1 Chronic myeloproliferative disease; T39.016A Underdosing of aspirin, initial encounter; Z91.128 Patient's intentional underdosing of medication regimen for other reason; D50.9 Iron deficiency anemia, unspecified; I65.22 Occlusion and stenosis of left carotid artery; E78.00 Pure hypercholesterolemia, unspecified; Z79.899 Other long term (current) drug therapy; Z20.822 Contact with and (suspected) exposure to COVID-19
CPT/HCPCS: 36415; 70496; 70498; 70551; 80048; 80053; 80061; 81003; 83036; 83690; 85025; 87631; 93306; 96372; 96374; 97161; 99281; 99285; A9270; G0378; J1650; Q9967; 0202U; 81001; 83721; 87086

== ENCOUNTER 2021-04-23 08:00 | Outpatient (CLI) | payer MEDICARE, OTHER ==
--- NOTE | 2021-04-23 17:36 | XRAY Report ---
PROCEDURE: Tib/Fib RT INDICATIONS: RIGHT LEG PAIN TECHNIQUE: 2 views of the tibia and fibula were acquired. COMPARISON: X-ray of the right knee, 08/01/2020 FINDINGS: Bones: No fractures or dislocations. No suspicious bony lesions. No definitive total knee arthropl asty. Soft tissues: No suspicious soft tissue calcifications or masses. Lower extremity has mottled appea eliz with subcutaneous soft tissue calcifications. Vascular calcifications consistent with atheroscl erosis. IMPRESSION: 1. No acute osseous amenities. 2. Mottled appearance of lower extremely with subcutaneous soft tissue calcifications. Differential d iagnoses include scleroderma and dystrophic calcification. Recommend clinical correlation. 3. Peripheral vascular disease. Reviewed by: Thomas Hurley MD on 04/23/2021 5:34 PM PST Approved by: Thomas Hurley MD on 04/23/2021 5:34 PM PST Station ID: [id number]
== END 2021-04-23 23:59 | disposition home or self-care (01) ==
LOC: DI.S 08:00
PROVIDERS: ATTEND Physician Assistant
DX: R93.6 Abnormal findings on diagnostic imaging of limbs (principal); R93.89 Abnormal findings on diagnostic imaging of other specified body structures; I73.9 Peripheral vascular disease, unspecified

== ENCOUNTER 2021-04-23 18:17 | Emergency (ER) | payer MEDICARE, OTHER ==
--- NOTE | 2021-04-23 19:39 | Ultrasound Report ---
PROCEDURE: Duplex Ext Veins Right INDICATIONS: swelling redness TECHNIQUE: Real-time imaging, as well as color and pulse Doppler interrogation, were performed of the lower extr emity deep veins from the inguinal ligament to the popliteal fossa. COMPARISON: None. FINDINGS: The deep veins are normally compressible, and free of intraluminal thrombus. Color and pu lse Doppler demonstrate normal phasic intraluminal flow. There is normal augmentation response to di stal compression maneuver. Incidental note made of duplicated mid femoral vein segment. Mild subcutaneous edema right calf. IMPRESSION: 1. No DVT in the right lower extremity. 2. Right calf not well evaluated due to patient discomfort. 3. Subcutaneous edema without focal drainable fluid collection. 4. Preliminary results given by the technologist to the ordering provider. Reviewed by: Franchesca Beaulieu MD on 04/23/2021 7:38 PM PST Approved by: Franchesca Beaulieu MD on 04/23/2021 7:38 PM PST Station ID: [id number]
--- NOTE | 2021-04-23 20:10 | ED Physician Documentation ---
History of Present Illness - Stated complaint Stated Complaint: RIGHT LEG WOUND - Chief complaint Chief Complaint: Wound - History obtained from History obtained from: Patient, Caregiver - Additonal information Additional information: 81yF with pmh dementia, chronic RLE wound, presents after being sent in from walk in clinic for eval for DVT in RLE. patient with chronic RLE wound s/p fall in September 2020. she got a new caregiver this week and the caregiver was concerned about the pain and swelling. mild to minimal erythema, no streaking, no fevers. 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 HEENT: Cataracts, Tonsil/Adenoidectomy - Present Medications Home Medications: Ambulatory Orders Medication Instructions Recorded Confirmed Hydroxyurea [Hydrea] 500 mg PO BID 07/26/12 12/26/20 Aspirin Chewable [[place] 81 mg PO DAILY #30 tablet 12/26/20 Aspirin] Atorvastatin [Lipitor] 40 mg PO QPM #30 tablet 12/26/20 Mupirocin 2% Oint [Bactroban 2% 1 applic TOP BID #22 gm 04/23/21 Oint] - Allergies Allergies/Adverse Reactions: Allergies Allergy/AdvReac Type Severity Reaction Status Date / Time codeine AdvReac Nausea Verified 04/23/21 18:37 - Social History Does the pt smoke?: No Smoking Status: Never smoker Does the pt drink ETOH?: No Does the pt have substance abuse?: No - Immunizations Immunizations are current?: Yes - POLST Patient has POLST: No PD ED PE NORMAL - Vitals Vital signs reviewed: Yes - General General: No acute distress, Well developed/nourished, Other (alert) - HEENT HEENT: Atraumatic, PERRL, EOMI - Neck Neck: Supple, no meningeal sign - Derm Derm: Normal color, Warm and dry, Other (chronic appearing wound to R medial ankle/leg with granulation tissue. minimal/mild surrounding erythema and swelling) - Extremities Extremities: No deformity, No calf tenderness / cord, Other (ttp around medial R leg in area surrounding her wound) - Neuro Neuro: No motor deficit, No sensory deficit Results - Vitals Vitals: Vital Signs - 24 hr 04/23/21 04/23/21 04/23/21 18:29 20:04 21:45 Temperature 36.2 C L 36.3 C L 36.3 C L Heart Rate 87 85 84 Respiratory 16 16 16 Rate Blood Pressure 148/76 H 147/75 H 142/72 H O2 Saturation 100 99 99 Oxygen O2 Source Room air PD MEDICAL DECISION MAKING - ED course ED course: Patient with negative u/s for DVT. did d/w caregiver that she will need f/u dvt study in one week, especially given this was a technically limited study. strict return precautions discussed. will provide antibiotics ointment. lines drawn on skin to delineate area of erythema. plan to f/u with Dr. Lau's office tomorrow. Departure - Departure Disposition: 01 Home, Self Care Clinical Impression: Chronic wound of extremity, Pain in extremity, Swelling of extremity Condition: Good Instructions: ED Wound Care Prescriptions: Mupirocin 2% Oint [Bactroban 2% Oint] 1 applic TOP BID #22 gm Comments: Ms. Maldonado was seen in the ED for swelling, pain and a right leg wound. It does not look like a significant infection at this time but I am prescribing some antibiotic ointment until she can follow up with Dr. Lau. Please ask her about ordering a follow up DVT study in one week's time. Return to the ED if she has any new or worsening symptoms or if you have other concerns. Discharge Date/Time: 04/23/21 21:46
[2021-04-23] MEDS ORDERED: IBUPROFEN 400 MG TABLET PO STA (21:02)
[2021-04-23] MEDS ORDERED: BACITRACIN ZINC OINT 1 PACKET TOP STA (21:28)
[2021-04-23 21:47] VITALS: BP 142/72
== END 2021-04-23 21:46 | disposition home or self-care (01) ==
LOC: ED 18:17
DX: M79.661 Pain in right lower leg (principal); R22.41 Localized swelling, mass and lump, right lower limb; S81.801A Unspecified open wound, right lower leg, initial encounter; X58.XXXA Exposure to other specified factors, initial encounter; R93.6 Abnormal findings on diagnostic imaging of limbs; R93.89 Abnormal findings on diagnostic imaging of other specified body structures; I73.9 Peripheral vascular disease, unspecified
CPT/HCPCS: 73590; 93971; 99283; 99284; A9270

== ENCOUNTER 2021-05-12 00:12 | Outpatient (CLI) | payer MEDICARE, OTHER | END 2021-05-12 00:13 | disposition critical access hospital (66) | LOC: EMS 00:12 | DX: M25.531 Pain in right wrist (principal); W18.30XA Fall on same level, unspecified, initial encounter; Y92.003 Bedroom of unspecified non-institutional (private) residence as the place of occurrence of the external cause | CPT/HCPCS: A0425; A0429 ==

== ENCOUNTER 2021-05-12 00:40 | Emergency (ER) | payer MEDICARE, OTHER ==
[2021-05-12] MEDS ORDERED: HYDROcod/ACETAM 5/325 MG TABLET PO STA (01:00)
--- NOTE | 2021-05-12 01:01 | ED Physician Documentation ---
PD HPI UPPER EXT INJURY - Stated complaint Stated Complaint: R WRIST INJ - Chief complaint Chief Complaint: Trauma Ext - History obtained from History obtained from: Patient, EMS - History of Present Illness Location: Right, Wrist Type of injury: Fall Where injury occurred: Home Timing - onset: How many hours ago (1) Timing - details: Abrupt onset Pain level max: 8 Pain level now: 0 (at rest but 8 with movement, palpation) Improved by: Rest Worsened by: Moving, Palpating Associated symptoms: No: Weakness, Numbness, Tingling Contributing factors: No: Anticoagulated Similar symptoms before: Has not had sx before Recently seen: Not recently seen - Additonal information Additional information: 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 She experienced sudden onset right wrist pain that persists since falling. She is right hand dominant. Denies other injury; denies LOC, denies head injury, denies neck pain Review of Systems Musculoskeletal: reports: Joint pain (right wrist). 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 HEENT: Cataracts, Tonsil/Adenoidectomy - Present Medications Home Medications: Ambulatory Orders Medication Instructions Recorded Confirmed Hydroxyurea [Hydrea] 500 mg PO BID 07/26/12 05/12/21 Aspirin Chewable [[facility] [place] [facility] 81 mg PO DAILY #30 tablet 12/26/20 05/12/21 Aspirin] Atorvastatin [Lipitor] 40 mg PO QPM #30 tablet 12/26/20 05/12/21 Mupirocin 2% Oint [Bactroban 2% 1 applic TOP BID #22 gm 04/23/21 05/12/21 Oint] HYDROcod/ACETAM 5/325 [[place] 5/325] 1 - 2 tablet PO Q6H PRN #14 tablet 05/12/21 - Allergies Allergies/Adverse Reactions: Allergies Allergy/AdvReac Type Severity Reaction Status Date / Time codeine AdvReac Nausea Verified 05/12/21 00:44 - Social History Does the pt smoke?: No Smoking Status: Never smoker Does the pt drink ETOH?: No Does the pt have substance abuse?: No - Immunizations Immunizations are current?: Yes - POLST Patient has POLST: No PD ED PE NORMAL - Vitals Vital signs reviewed: Yes - General General: Alert and oriented X 3, No acute distress, Well developed/nourished - HEENT HEENT: Atraumatic - Neck Neck: No bony TTP - Extremities Extremities: No edema - Neuro Eye Opening: Spontaneous Motor: Obeys Commands Verbal: Oriented GCS Score: 15 PD ED PE EXPANDED - Extremities Extremities: Tenderness (right wrist), Limited ROM (right wrist), Bruising (faint , right wrist), Sensory intact, Vascular intact (strong right radial pulse. LTS intact in hand, fingertips). No: Deformity Results - Vitals Vitals: Vital Signs - 24 hr 05/12/21 05/12/21 00:44 01:42 Temperature 36.6 C 36.6 C Heart Rate 85 88 Respiratory 15 15 Rate Blood Pressure 158/91 H 143/89 H O2 Saturation 99 100 Oxygen O2 Source Room air - Rads (name of study) right wrist xrays Radiology: Prelim report reviewed, See rad report Procedures - Splint (location) Upper extremity right Splint applied by: Tech Type of splint: Fiberglass, Long arm, Sugar tong Other: Patient tolerated well, No complications, Neurovascular intact, Good alignment, Sling provided PD MEDICAL DECISION MAKING - ED course Complexity details: reviewed results, re-evaluated patient, considered differential, d/w patient ED course: presents after FOOSH, xrays reveal right distal radius fracture and ulnar styloid fracture, mild displacement. The RUE is NVI. A sugar tong splint is placed followed by a sling. Given vicodin in ED with rx electronically submitted to her pharmacy of choice. Diagnosis d/w patient, instructed to follow up with orthopedic surgery. Return precautions also discussed. I am prescribing a short course of short-acting opioid pain medication for this patient. I have reviewed the patients RADIOLOGIC TECHNOLOGIST MAMMOGRAM and no concerning findings were noted. I have discussed that the opioids are for short term therapy only, and will not be refilled from the ED Departure - Departure Disposition: 01 Home, Self Care Clinical Impression: Wrist fracture, right Qualifiers: Encounter type: initial encounter Fracture type: closed Qualified Code(s): S62.101A - Fracture of unspecified carpal bone, right wrist, initial encounter for closed fracture Condition: Good Instructions: ED Sling, ED Splint Care Fiberglass, ED Fx Wrist General Follow-Up: Shun Laura MD [Provider Admit Priv/Credential] - Rhonda Lau MD [Primary Care Provider] - Prescriptions: HYDROcod/ACETAM 5/325 [[place]ance[place] 5/325] 1 - 2 tablet PO Q6H PRN #14 tablet PRN Reason: Pain Comments: Your xrays show that you have fractured your wrist. Follow up with orthopedic surgery within one week, and keep the splint on until you are advised otherwise. You can use the contact information provided elsewhere on these discharge instructions to try to arrange an appointment with Dr. Laura (orthopedic surgery), or else contact your primary care provider's office to ask about the referral process. A prescription for hydrocodone/acetaminophen (strong pain medication) has been electronically submitted to [facility] in [place]. Do not drive when taking this medication. Do not take tylenol (acetaminophen) or tylenol- containing products while taking the hydrocodone/acetaminophen. You can take ibuprofen if the pain is not severe enough for the prescription medication; you can also take ibuprofen if the hydrocodone/acetaminophen does not provide adequate pain relief after 1 hour of taking a dose. I am prescribing a short course of narcotic pain medication for you. These are potentially dangerous and addictive medications that should be used carefully. These medications may constipate you. Take an jymz-jih-lsbadui stool softener (docusate) twice daily with plenty of water while taking these medications. If you go 24 hours without a bowel movement, take [id number]-dbqsvgz miralax, per package instructions. Do not drink or drive while taking these medications. If you received narcotic or sedating medications while in the emergency department, do not drive for 24 hours. Store this medication in a safe, secure place and out of reach of children. It is a violation of federal law to give or sell this medication to another person or to use in a manner other than prescribed. The ED will not refill narcotic prescriptions, including prescriptions lost or stolen. To dispose of unwanted medications: 1. [facility] at [address] in [place] has a medication drop box. They accept prescription medications (in pill form) Wednesday through Wednesday 9:00 a.m. to 5:00 p.m. 2. [facility] accepts prescription medications (in pill form only) for disposal year round. Call for more information. 3. Contact the [facility] for the next [facility] sponsored prescription drug collection event. , [phone], or [phone]; Discharge Date/Time: 05/12/21 02:23
--- NOTE | 2021-05-12 01:27 | XRAY Report ---
PROCEDURE: Wrist 3 View RT INDICATIONS: fall, wrist pain, tenderness TECHNIQUE: 3 views of the wrist were acquired. COMPARISON: None FINDINGS: Bones: Mildly displaced comminuted fracture of the distal radius with articular surface extension to the radiocarpal joint. Mildly displaced ulnar styloid fracture. Scaphoid view: Not requested Soft tissues: No suspicious soft tissue calcifications. IMPRESSION: Distal radial and ulnar fractures. Reviewed by: Rosibel Gross MD on 05/12/2021 1:25 AM [facility] Approved by: Rosibel Gross MD on 05/12/2021 1:25 AM [facility] Station ID: [id number]
[2021-05-12 01:44] VITALS: BP 143/89
== END 2021-05-12 02:23 | disposition home or self-care (01) ==
LOC: EDUNIT# → ED 00:40
DX: S52.601A Unspecified fracture of lower end of right ulna, initial encounter for closed fracture (principal); S52.501A Unspecified fracture of the lower end of right radius, initial encounter for closed fracture; W18.30XA Fall on same level, unspecified, initial encounter; Y92.009 Unspecified place in unspecified non-institutional (private) residence as the place of occurrence of the external cause
CPT/HCPCS: 29125; 73110; 99283; A9270

== ENCOUNTER 2021-05-19 08:00 | Outpatient (CLI) | payer MEDICARE, OTHER ==
--- NOTE | 2021-05-19 20:08 | XRAY Report ---
PROCEDURE: Wrist 3 View RT INDICATIONS: WRIST PAIN TECHNIQUE: 3 views of the wrist were acquired. COMPARISON: X-ray wrist FINDINGS: Bones: Comminuted and impacted fracture of the distal radius is identified. No intra-articular extens ion. Appearance demonstrates mild interval sclerosis. Alignment is stable. No suspicious bony lesions . Soft tissues: No suspicious soft tissue calcifications. IMPRESSION: Mild interval healing with stable alignment of distal radial metaphyseal fracture. Ulna styloid fract ure is stable. Reviewed by: Tayler Patel MD on 05/19/2021 8:07 PM PST Approved by: Tayler Patel MD on 05/19/2021 8:07 PM PST Station ID: [id number]
== END 2021-05-19 23:59 ==
LOC: DI.WOS 08:00
PROVIDERS: ATTEND Orthopaedic Surgery
DX: S52.591D Other fractures of lower end of right radius, subsequent encounter for closed fracture with routine healing (principal)

== ENCOUNTER 2021-05-24 17:22 | Emergency (ER) | payer MEDICARE, OTHER ==
[2021-05-24 17:32] VITALS: BP 152/69
--- NOTE | 2021-05-24 18:04 | ED Physician Documentation ---
History of Present Illness - Stated complaint Stated Complaint: FEMALE - Chief complaint Chief Complaint: Abd Pain - History obtained from History obtained from: Patient - History of Present Illness Timing: Today - Additonal information Additional information: 81-year-old female has had recent fall in her home and she is injured her right wrist. She is been placed into a splint and she has been taking a few days of hydrocodone. She is become constipated and today she began to develop some severe rectal pain she had a baseball size stool come out and felt much improved. She got back into her car and got about [address] when she started to feel the pain again and her son brought her back here she is now pain-free she has not passed any more stool. Review of Systems Constitutional: denies: Fever Nose: denies: Congestion Throat: denies: Sore throat Cardiac: denies: Chest pain / pressure Respiratory: denies: Dyspnea, Cough GI: reports: Abdominal Pain, Constipation. 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 HEENT: Cataracts, Tonsil/Adenoidectomy - Present Medications Home Medications: Ambulatory Orders Medication Instructions Recorded Confirmed Hydroxyurea [Hydrea] 500 mg PO BID 07/26/12 05/12/21 Aspirin Chewable [[facility] 81 mg PO DAILY #30 tablet 12/26/20 05/12/21 Aspirin] Atorvastatin [Lipitor] 40 mg PO QPM #30 tablet 12/26/20 05/12/21 Mupirocin 2% Oint [Bactroban 2% 1 applic TOP BID #22 gm 04/23/21 05/12/21 Oint] HYDROcod/ACETAM 5/325 [[place] 5/325] 1 - 2 tablet PO Q6H PRN #14 tablet 05/12/21 - Allergies Allergies/Adverse Reactions: Allergies Allergy/AdvReac Type Severity Reaction Status Date / Time codeine AdvReac Nausea Verified 05/24/21 17:32 - Social History Does the pt smoke?: No Smoking Status: Never smoker Does the pt drink ETOH?: No Does the pt have substance abuse?: No - Immunizations Immunizations are current?: Yes - POLST Patient has POLST: No PD ED PE NORMAL - Vitals Vital signs reviewed: Yes (Hypertensive mild) - General General: Alert and oriented X 3, No acute distress, Well developed/nourished - HEENT HEENT: Atraumatic, PERRL, EOMI - Neck Neck: Supple, no meningeal sign, No bony TTP, Other (There is ecchymosis to the neck anteriorly dated approximately 1 week by color.) - Respiratory Respiratory: No respiratory distress - Abdomen Abdomen: Normal bowel sounds, Soft, Non tender, Non distended, No organomegaly - Derm Derm: Normal color, Warm and dry, No rash - Extremities Extremities: Other (splint to the right forearm is in place good distal cap refill and no specific pain. 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 Results - Vitals Vitals: Vital Signs - 24 hr 05/24/21 17:27 Temperature 36.0 C L Heart Rate 91 Respiratory 16 Rate Blood Pressure 152/69 H O2 Saturation 99 Oxygen O2 Source Room air PD MEDICAL DECISION MAKING - ED course Complexity details: reviewed old records, reviewed results, re-evaluated patient, considered differential, d/w patient, d/w family ED course: 81-year-old female who has had a recent injury to her wrist from a fall in her home has developed some constipation and she has relieved her constipation prior to her visit in the emergency department and she is currently not having symptoms. She had severe abdominal pain associated with this and she had a recurrence of the pain following evacuation of her bowels and this has resolved as well. I suspect she is has further stool to come out and I have discussed with her and her son Tiburcio using milk of magnesia today and training the colon with MiraLAX Departure - Departure Disposition: Home, Self Care Clinical Impression: Constipation Qualifiers: Constipation type: slow transit constipation Qualified Code(s): K59.01 - Slow transit constipation Instructions: ED Constipation Follow-Up: Rhonda Lau MD [Primary Care Provider] - Comments: Erica, today it looks like you have been constipated from the use of the pain medications for your wrist injury. There is a 2 prong approach to fixing this constipation. Initially administration of a dose of milk of magnesia should result in clearing out of your bowels. Following that administration of a regular dose of MiraLAX available ypcv-apu-itjohhu will aid in retraining the colon. Occasionally when the colon gets stretched out extremely it will get lazy and require this retraining. The expectation is to have regular bowel movements over the next week and the training. Should be at least 1 to 3 weeks.
== END 2021-05-24 18:35 | disposition home or self-care (01) ==
LOC: ED 17:22
DX: K59.01 Slow transit constipation (principal); F03.90 Unspecified dementia, unspecified severity, without behavioral disturbance, psychotic disturbance, mood disturbance, and anxiety
CPT/HCPCS: 99281; 99282

== ENCOUNTER 2021-06-09 08:00 | Outpatient (CLI) | payer MEDICARE, OTHER ==
--- NOTE | 2021-06-09 15:26 | XRAY Report ---
PROCEDURE: Wrist 2 View RT INDICATIONS: WRIST FRACTURE TECHNIQUE: 2 views of the wrist were acquired. COMPARISON: Right wrist radiographs 05/19/2021 FINDINGS: Bones: Distal radial metaphyseal fracture is redemonstrated with unchanged alignment. Mild osseous re sorption is seen along the fracture line, consistent with healing changes. Ulnar styloid fracture is also again seen. No new osseous abnormality. Soft tissues: No suspicious soft tissue calcifications. IMPRESSION: Progressive healing changes involving the distal radial fracture with unchanged alignment. Unchanged ulnar styloid fracture also again seen. Reviewed by: Cristian Vázquez MD on 06/09/2021 3:24 PM PDT Approved by: Cristian Vázquez MD on 06/09/2021 3:24 PM PDT Station ID: [id number]
== END 2021-06-09 23:59 | disposition home or self-care (01) ==
LOC: DI.WOS 08:00
PROVIDERS: ATTEND Orthopaedic Surgery
DX: S52.531D Colles' fracture of right radius, subsequent encounter for closed fracture with routine healing (principal); S52.611D Displaced fracture of right ulna styloid process, subsequent encounter for closed fracture with routine healing

== ENCOUNTER 2022-03-27 17:00 | Outpatient (CLI) | payer MEDICARE, OTHER ==
--- NOTE | 2022-03-27 18:09 | XRAY Report ---
PROCEDURE: Shoulder 3 View LT INDICATIONS: SHOULDER PAIN TECHNIQUE: 3 views of the shoulder were acquired. COMPARISON: None. FINDINGS: Bones: No acute osseous fracture or dislocation. Severe glenohumeral degenerative changes are seen w ith subchondral sclerosis and remodeling of the articular surfaces. Acromioclavicular joint is not we ll evaluated due to positioning. No suspicious bony lesions. Visualized ribs appear intact. Soft tissues: No suspicious soft tissue calcifications. IMPRESSION: 1.Severe glenohumeral osteoarthrosis 2.No acute osseous abnormality. If there is clinical concern or persistent symptoms, additional imagi ng such as repeat radiographs or advanced imaging (e.g. CT, MRI) may be helpful for further evaluatio n. Reviewed by: Cristian Vázquez MD on 03/27/2022 6:08 PM [facility] Approved by: Cristian Vázquez MD on 03/27/2022 6:08 PM [facility] Station ID: [id number]
== END 2022-03-27 17:01 | disposition home or self-care (01) ==
LOC: DI 17:00
PROVIDERS: ATTEND Internal Medicine
DX: M19.012 Primary osteoarthritis, left shoulder (principal)

== ENCOUNTER 2022-04-23 18:19 | Outpatient (CLI) | payer MEDICARE, OTHER | END 2022-04-23 18:20 | disposition short-term general hospital (02) | LOC: EMS 18:19 | DX: M25.561 Pain in right knee (principal); W18.30XA Fall on same level, unspecified, initial encounter; Y93.01 Activity, walking, marching and hiking; Y92.008 Other place in unspecified non-institutional (private) residence as the place of occurrence of the external cause | CPT/HCPCS: A0425; A0429 ==